=== PATIENT | female | born 1965 | race Two or more races ===

== ENCOUNTER 2024-12-24 12:09 | Emergency (ER) | payer OTHER ==
[~2024-12-24] VITALS: Ht 172.7 cm; Wt 68.0 kg
== END 2024-12-24 14:24 | disposition home or self-care (01) ==
LOC: ER 12:10
DX: H11.001 Unspecified pterygium of right eye (principal); H11.431 Conjunctival hyperemia, right eye; H10.31 Unspecified acute conjunctivitis, right eye